=== PATIENT | female | born 1985 | race Asian ===

== ENCOUNTER 2021-02-13 07:34 | Day surgery (SDC) | payer OTHER ==
[~2021-02-13] VITALS: Ht 167.6 cm; Wt 63.0 kg
[2021-02-13] VITALS (8 sets, daily range): BP systolic 85–146; BP diastolic 55–93
--- NOTE | 2021-02-13 07:50 | NUR ---
PATIENT AMBULATORY TO ROOM WITH STEADY GAIT. VITAL SIGNS OBTAINED. DR ALVARADO NOTIFIED. NEW ORDERS RECEIVED. CONSENT OBTAINED FOR ANR PROCEDURE. PATIENT IS ALERT AND ORIENTED X3. ADMISSION ASSESSMENT COMPLETED AT THIS TIME. IV ESTABLISHED AND LABS OBTAINED AND SENT TO LAB FOR REFERENCE. ORIENTED PATIENT TO ROOM AND CALL LIGHT SYSTEM. CALL LIGHT IN REACH. WILL CONTINUE TO MONITOR.
[2021-02-13] MEDS ORDERED: TRAZODONE50 MG PO (08:46)
[2021-02-13 09:14] LABS: HEMATOCRIT 37.7 % (37.0-47.0); HEMOGLOBIN 11.8 g/dl (12.0-16.0); IMMATURE GRANULOCYTES 0.1 % (0.0-5.0); MEAN CELL VOLUME 89.3 fL CALC (80.0-100.0); MEAN CORPUSCULAR HGB CONC 31.3 g/dL CAL (32.0-36.0); NEUT# 5.33 thou/uL (2.00-7.15); RED BLOOD COUNT 4.22 mill/uL (4.20-5.60); RED CELL DISTRI WIDTH 12.9 % (11.5-15.5)
[2021-02-13 09:24] LABS: ALBUMIN 4.4 g/dL (3.2-5.0); ALKALINE PHOSPHATASE 76 u/l (38-126); ANION GAP 14 (6-22 (CALC)); BUN 15 mg/dL (7-17); BUN/CREATININE RATIO 20 (12-20 (CALC)); CARBON DIOXIDE 25 mmol/l (22-30); CHLORIDE 102 mmol/l (95-108); CREATININE 0.8 mg/dL (0.5-1.0); GFR > 60 ML/MIN (>=60 (CALC)); GFR FOR AFR.AMER. > 60 ML/MIN (>=60 (CALC)); POTASSIUM 4.1 mmol/l (3.5-5.1); SGOT/AST 34 u/l (14-36); SODIUM 138 mmol/l (137-146)
--- NOTE | 2021-02-13 10:16 | NUR ---
DR ALVARADO AT BEDSIDE AT THIS TIME. VITAL SIGNS OBTAINED
--- NOTE | 2021-02-13 12:40 | NUR ---
PATIENT DOWNSTAIRS VIA BED FOR ANR PROCEDURE
[2021-02-13] MEDS ORDERED: CLONIDINE HCL0.1 MG PO (17:18)
[2021-02-13] MEDS ORDERED: NALTREXONE HCL50 MG PO (17:20)
[2021-02-13] MEDS ORDERED: CLONAZEPAM1 M1 PO (17:20)
[2021-02-13] MEDS ORDERED: CLINDAMYCIN300 M1 PO (18:48)
--- NOTE | 2021-02-13 18:55 | NUR ---
PATIENT ARRIVED TO ROOM VIA BED. CALM, RESTING QUIETLY. BEDSIDE REPORT RECEIVED FROM [place] VEGA. VSS. DR. ALVARADO AT BEDSIDE, INSTRUCTED TO ADMINSTER IV ANTIBIOTIC. NO FURTHER CONCERNS EXPRESSED. CALL LIGHT WITHIN REACH.
--- NOTE | 2021-02-13 19:46 | NUR ---
ASSESSMENT COMPLETE. PATIENT LYING IN BED, A LITTLE RESTLESS. IV CLEOCIN ADMINSTERED. NO DISTRESS NOTED AT THIS TIME. CALL LIGHT WITHIN REACH.
--- NOTE | 2021-02-13 21:17 | NUR ---
PATIENT RESTLESS, C/O BACK PAIN. ATIVAN 1MG IV GIVEN AT THIS TIME. WILL CONTINUE TO MONITOR.
--- NOTE | 2021-02-13 22:58 | NUR ---
BED ALARMING PATIENT ATTEMPTING TO GET OUT OF BED. PATIENT REQUESTS HER BOOK FROM THE DRESSER AND TOKEN THAT HER MOM GIFTED HER WITH HOWEVER IT ISN'T IN THE SACK SHE THOUGHT. PM MEDS ADMINSTERED AT THIS TIME WITH WATER, TOLERATED WELL. DISCONNECTED IV FLUIDS. PATIENT C/O BACK DISCOMFORT, HEATING PACK APPLIED TO LOWER BACK FOR COMFORT. NO FURTHER CONCERNS EXPRESSED. CALL LIGHT WITHIN REACH, INSTRUCTED TO CALL FOR ASSISTANCE. BED ALARM ACTIVATED.
--- NOTE | 2021-02-14 00:36 | NUR ---
PATIENT ASSISTED TO RESTROOM, VOID X1. LEFT THIGH DRESSING REINFORCED. PATIENT ASSISTED BACK TO BED. BED ALARM ACTIVATED, CALL LIGHT WITHIN REACH.
--- NOTE | 2021-02-14 02:36 | NUR ---
PATIENT RESTLESS, VERBALIZES INABILITY TO SLEEP. ATIVAN 2MG ADMINISTERED AT THIS TIME.
--- NOTE | 2021-02-14 02:53 | NUR ---
BED ALARMED. PATIENT OUT OF BED STATING SHE NEEDS TO GET UP TO STRETCH HER LEGS. REDIRECTED PATIENT BACK TO BED AND ASSISTED WITH ROM OF LOWER EXTREMITIES.
[2021-02-14 03:50] VITALS: BP 147/91
--- NOTE | 2021-02-14 04:41 | NUR ---
PATIENT C/O BACK PAIN. PATIENT REPOSITIONED FOR COMORT. NO FURTHER CONCERNS EXPRESS. CALL LIGHT WITHIN REACH
--- NOTE | 2021-02-14 07:08 | NUR ---
report rec from mary carmen corey rn
--- NOTE | 2021-02-14 07:11 | NUR ---
PT SLEEPING IN BED NO DISTRESS NOTED
[2021-02-14 07:30] VITALS: BP 159/90
[2021-02-14 07:44] VITALS: BP 159/90
--- NOTE | 2021-02-14 09:03 | NUR ---
dr dawson at bedside
--- NOTE | 2021-02-14 11:00 | NUR ---
PT REFUSING TO GET UP AN SHOWER, STATES HURTS TOO BAD, AND IS TOO DIZZY,
--- NOTE | 2021-02-14 11:52 | NUR ---
PT VERY RESTLESS, COMPLAINT OF BACK PAIN, REFUSING TO EAT LUNCH STATES I AM TOO DIZZY. REFUSING TO GET UP IN CHAIR.
--- NOTE | 2021-02-14 13:15 | NUR ---
found pt sitting on floor of bathroom, with small white box laying beside her, when told her to get up off the floor noticed a site with inner right thigh with blood. notified anr dr. schwartz, anr rep came up and told pt to get off the floor and took the white box and placed it on counter. dr. schwartz came in and spoke with pt about possible injection of needle. pt stated she did not want us looking in box that she was just sitting there waiting for water to warm up.
--- NOTE | 2021-02-14 14:15 | NUR ---
walked into room and found pt with needle in left hand, which she quickly placed inside of bed. asked pt to get up out of bed to search the bed and found a needle laying on the bed where pt had been sitting. anjum rainey at bedside with this staff membe. nursing intelligence group supervisor notified and at bedside at this time. white pill found on floor by anjum rainey. pt states she was not injecting, she was just using the needle for pain. box removed and pictures taken of what was found , clothes, and all personal belongings removed from room. pt at this time sitting on bed, crying. vital signs stable
--- NOTE | 2021-02-14 15:00 | NUR ---
med surg director, pharmacy, and cno notified. booking police officer notifed per director. pt walking unsteadily down marques with gown off to nurses station. pt walked with staff back to room, weaving back and forth. pts door open and staff sitting outside of room
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
--- NOTE | 2021-02-14 15:18 | NUR ---
police here speaking with pt.
--- NOTE | 2021-02-14 15:50 | NUR ---
pt up to bathroom to take shower, states feels fine
--- NOTE | 2021-02-14 16:41 | NUR ---
PT IS UP DRESSED, SITTING ON BED WAITING FOR DOCTOR TO RETURN TO DISCHARGE HER HOME. DISCHARGE PAPERS TYPED AND READY FOR SIGNATURE
--- NOTE | 2021-02-14 16:58 | NUR ---
PT GIVEN DISCHARGE INST. AND RX. TO PHARMACY. PT VOICES UNDERSTANDING. PACKET GIVEN TO PT WITH ALL OF BELONGINGS AND WHEELCHAIR TO WAITING ROOM AND DELIVERED TO FAMILY FOR TUBE LANCER
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
== END 2021-02-14 17:00 | disposition home or self-care (01) | DRG 897 ==
LOC: ANR 07:34 → MS2 07:39 → ANR 02-14 17:00
PROVIDERS: ATTEND Anesthesiology
DX: F11.20 Opioid dependence, uncomplicated (principal); L02.416 Cutaneous abscess of left lower limb
CPT/HCPCS: J2060; J2354